=== PATIENT | female | born 1995 | race Two or more races ===

== ENCOUNTER 2022-07-25 11:45 | Day surgery (SDC) | payer OTHER | END 2022-07-25 19:40 | disposition home or self-care (01) | LOC: CIR.AMB 11:45 | PROVIDERS: ATTEND Student in an Organized Health Care Education/Training Program | DX: C54.1 Malignant neoplasm of endometrium (principal); N85.01 Benign endometrial hyperplasia; N93.8 Other specified abnormal uterine and vaginal bleeding; Z30.432 Encounter for removal of intrauterine contraceptive device; E66.9 Obesity, unspecified; Z20.822 Contact with and (suspected) exposure to COVID-19 ==